=== PATIENT | male | born 2005 | race Caucasian/White ===

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

== ENCOUNTER 2025-04-18 16:13 | Emergency (ER) | payer OTHER, SELFPAY ==
[2025-04-18 16:15] VITALS: BP 140/84; PULSE 85; RESP 16; TEMP 36.4; O2SAT 100; BMI 36.1
[2025-04-18] MEDS: Triamcinolone Acetonide 40 MG/ML Vial IM (16:42)
[2025-04-18 16:46] VITALS: PULSE 78; RESP 18; O2SAT 98
--- NOTE | 2025-04-18 16:50 | EDS_ITS ---
HPI <HAYLIE Boyle - Last Filed: 04/18/25 18:05> History of Present Illness Chief Complaint: Rash Narrative Narrative: 20-year-old male presents with a poison danica rash that started 5 days ago. He works as a technical documentation specialist at a local [employer] and states he was exposed there. He has it on his face, arms, lower abdomen and legs. He was prescribed a 10 no prednisone taper starting at 40 mg and topical triamcinolone cream by his primary care doctor which she started 2 days ago but he is not improving. It's worst over both hands. He has no fever or chills. [facility] <HAYLIE Boyle Last Filed: 04/18/25 18:05> [facility] Medical History (Updated 04/18/25 @ 16:45 by Estefania Smith) Asthma Home Medications ?Medication ?Instructions ?Recorded ?Last Taken ?Type prednisone 20 mg tablet 20 mg PO Q12H poison danica 12/12 Unknown History triamcinolone acetonide 0.1 % 1 applic topical BID poi son danica 04/18/25 Unknown History topical cream Allergy/AdvReac Type Severity Reaction Status Date / Time No Known Allergies Allergy Verified 04/18/25 16:17 Social History Smoking Status: Never smoker ROS <HAYLIE Boyle Last Filed: 04/18/25 18:05> ROS ED ROS Narrative Constitutional: Negative for fever, chills, malaise. Skin: Positive for rash. EXAM <HAYLIE Boyle Last Filed: 04/18/25 18:05> Physical Exam Narrative Exam Narrative: CONST: Patient sitting in no acute distress. EYES: Normal inspection. NECK: Normal inspection. RESP: No respiratory distress, CTAB. CVS: Regular rate and rhythm, no murmur, no gallop. SKIN: Plant contact dermatitis rash with red plaques and scattered circular lesions on upper and lower extremities. Mildly across his forehead and cheeks. It is more densely focused on both hands with mild swelling and diffuse vesicles on all the digits. There is no warmth, fluctuance, or purulent drainage. EXTREMITIES: Normal appearance, 2+ radial and PT pulses. NEURO: Alert and answering questions appropriately. PSYCH: Normal affect. Const Vital Signs: 04/18/25 16:15 04/18/25 16:46 Temperature 97.6 F L Temperature Source Oral Pulse Rate 85 78 Respiratory Rate 16 18 Blood Pressure 140/84 H Blood Pressure Mean 102 Pulse Ox 100 98 Oxygen Delivery Method Room Air <Dr. Paolo Cook MD - Last Filed: 04/18/25 16:57> Physical Exam Const Vital Signs: 04/18/25 16:15 04/18/25 16:46 Temperature 97.6 F L Temperature Source Oral Pulse Rate 85 78 Respiratory Rate 16 18 Blood Pressure 140/84 H Blood Pressure Mean 102 Pulse Ox 100 98 Oxygen Delivery Method Room Air MDM <HAYLIE Boyle - Last Filed: 04/18/25 18:05> [facility] Narrative Medical decision making narrative: Differential includes plant contact dermatitis, secondary cellulitis I have personally performed a face to face assessment of the patient and have reviewed the LUANN Note. I performed a substantive portion of the visit including all aspects of the following. My strickland findings include: History is 20-year-old male healthy. Has had poison danica on both hands and upper extremities. Currently on prednisone not getting better. Exam is [well-appearing 20-year-old male. Vital signs stable afebrile. H EENT exam normal. Lungs clear. Heart regular rhythm rate about 80 no murmur. Chest wall and ribs nontender. Small amount of poison danica on his mid upper chest. Abdomen soft nontender. Back nontender. No rashes on the abdomen or back. Moving all 4 extremities. Neurovascularly intact. He has pretty impressive poison danica on both hands palms fingers dorsum of the hands. And forearms. No secondary infection. Neurovascularly intact. Lower extremities are unremarkable. He is awake and alert.] Medical Decision Making [patient with poison danica. We given IM Kenalog. Finish his steroids. Use calamine lotion and Benadryl at home.] Other additions or changes: [None] <Dr. aPolo Cook MD - Last Filed: 04/18/25 16:57> [facility] Narrative Medical decision making narrative: I have personally performed a face to face assessment of the patient and have reviewed the LUANN Note. I performed a substantive portion of the visit including all aspects of the following. My strickland findings include: History is 20-year-old male healthy. Has had poison dainca on both hands and upper extremities. Currently on prednisone not getting better. Exam is [well-appearing 20-year-old male. Vital signs stable afebrile. H EENT exam normal. Lungs clear. Heart regular rhythm rate about 80 no murmur. Chest wall and ribs nontender. Small amount of poison danica on his mid upper chest. Abdomen soft nontender. Back nontender. No rashes on the abdomen or back. Mo ving all 4 extremities. Neurovascularly intact. He has pretty impressive poison danica on both hands palms fingers dorsum of the hands. And forearms. No secondary infection. Neurovascularly intact. Lower extremities are unremarkable. He is awake and alert.] Medical Decision Making [patient with poison danica. We given IM Kenalog. Finish his steroids. Use calamine lotion and Benadryl at home.] Other additions or changes: [None] History & Record Review Discussion w/independent historian: Patient Discharge Plan Triage Chief Complaint: Rash ED Midlevel Provider: Janette Matthews ED Provider: Paolo Cook Dx/Rx/DC Orders Clinical Impression: Allergic dermatitis due to poison danica Instructions: Poison Danica [facility] Prescriptions: No Action prednisone 20 mg tablet 20 mg PO Q12H triamcinolone acetonide 0.1 % cream 1 applic topical BID Primary Care Provider: Keyur Porter Referrals: Keyur Porter MD [Primary Care Provider] - Activity Restrictions/Additional Instructions: Use calamine lotion which may help your symptoms. You can take Benadryl every 6 hours. You were given a steroid shot here called Kenalog and you should keep taking your prednisone prescribed by your primary care doctor. This will take days to weeks to resolve. Print Language: Polish Disposition Disposition: Home, Self Care Discharge Date/Time: 04/18/25 17:01
== END 2025-04-18 17:01 | disposition home or self-care (01) ==
LOC: ED 16:42
PROVIDERS: Emergency Provider Emergency Medicine; PCP Family Medicine; Visit Provider Emergency Medicine
DX: L23.7 Allergic contact dermatitis due to plants, except food (principal); J45.909 Unspecified asthma, uncomplicated
CPT/HCPCS: 96372; 99283